=== PATIENT | male | born 1965 | race Caucasian/White ===

== ENCOUNTER 2024-08-30 06:45 | Day surgery (SDC) | payer OTHER ==
[2024-08-23 12:08] LABS: BASOPHILS % (AUTO) 0.5 % (0-1); EOSINOPHILS # (AUTO) 0.3 X10'3 (0-0.9); EOSINOPHILS % (AUTO) 3.8 % (0-6); LYMPHOCYTES % (AUTO) 24.9 % (21-51); MEAN CORPUSCULAR HEMOGLOBIN 27.6 PG (27.0-31.0); MEAN CORPUSCULAR HGB CONC 33.3 g/dL (33.0-36.5); MEAN CORPUSCULAR VOLUME 82.9 FL (78-98); MEAN PLATELET VOLUME 7.4 FL (7.4-10.4); MONOCYTES # (AUTO) 0.6 X10'3 (0-0.9); MONOCYTES % (AUTO) 7.9 % (2-12); NEUTROPHILS # (AUTO) 5.1 X10'3 (1.8-7.7); NEUTROPHILS % (AUTO) 62.9 % (42-75); PRE OP HEMATOCRIT 39.5 % (42.0-52.0); PRE OP HEMOGLOBIN 13.2 g/dL (14.0-17.9); PRE OP PLATELET COUNT 276 X10'3 (140-440); PRE OP WHITE BLOOD COUNT 8.1 10'3 (4.8-10.8); RED BLOOD COUNT 4.77 X10'6 (4.70-6.10); RED CELL DISTRIBUTION WIDTH 15.6 % (11.5-14.5)
[2024-08-23 12:22] LABS: PRE OP PROTIME 10.5 SECONDS (9.0-12.0)
[2024-08-23 12:24] LABS: ALBUMIN 4.2 G/DL (3.4-5.0); ALBUMIN/GLOBULIN RATIO 1.1 (1.1-1.5); ALKALINE PHOSPHATASE 92 IU/L (46-116); BLOOD UREA NITROGEN 11 MG/DL (7-18); BUN/CREATININE RATIO 11.3 (10.0-20.0); CALCIUM 9.2 MG/DL (8.5-10.1); CHLORIDE 104 MMOL/L (99-107); CREATININE 0.97 MG/DL (0.60-1.10); PRE OP ALT 60 U/L (30-65); PRE OP ANION GAP 9 (8-16); PRE OP AST 40 U/L (10-37); PRE OP BILIRUB, TOTAL 0.5 MG/DL (0.0-1.0); PRE OP GLUCOSE 97 MG/DL (70-104); PRE OP POTASSIUM 3.7 MMOL/L (3.4-5.1); PRE OP SODIUM 138 MMOL/L (135-145); TOTAL CARBON DIOXIDE 25.3 MMOL/L (24-32); eGFR 80 ML/MIN
[2024-08-23 12:29] LABS: BILIRUBIN,URINE NEGATIVE (Neg); CLARITY,URINE CLEAR (Clear); COLOR,URINE YELLOW (Yellow); GLUCOSE, URINE NEGATIVE (Neg); KETONES,URINE NEGATIVE (Neg); LEUKOCYTE ESTERASE ,URINE NEGATIVE (Neg); NITRITES, URINE NEGATIVE (Neg); OCCULT BLOOD,URINE NEGATIVE (Neg); PROTEIN,URINE NEGATIVE (Neg); UROBILINOGEN,URINE 0.2 E.U/dL (0.2-1.0)
[2024-08-23 12:36] LABS: UA COLLECTION TYPE CLN CATCH MIDSTREAM
[2024-08-30] VITALS (11 sets, daily range): BP systolic 120–144; BP diastolic 71–93; PULSE 72–94; RESP 12–16; TEMP 97.8; O2SAT 74–98
[~2024-08-30] VITALS: Ht 175.3 cm; Wt 111.7 kg
[2024-08-30] MEDS: ceFAZolin 2gm in dextrose, iso 50 ML IV ONE (05:30)
[~2024-08-30 06:45] MED LIST: ACET-3068 PO; ATOR20TA66 PO; FENO145T26 PO; GLIM4TAB7 PO; INSU100I31 SUBCUT; METF-436 PO; OMEP20CA16 PO; SPIR25TA5 PO
[2024-08-30] MEDS ORDERED: BUPIVAcaine 0.5% inj/PF 0 ML ONE (06:51)
[2024-08-30] MEDS ORDERED: LIDOcaine 1% W/epiNEPHrine 1:100,000 20ml vial ONE (06:52)
[2024-08-30] MEDS ORDERED: bacitracin 15gm ointment TP ONE (06:52)
[2024-08-30] MEDS: famotidine 20mg tablet PO ONE (07:09)
[2024-08-30] MEDS: ringers solution, lacted 1,000 ML IV SCH (07:10)
[2024-08-30] MEDS ORDERED: sevoflurane 250ml liquid IH ONE (09:00)
[2024-08-30] MEDS ORDERED: BUPIVACAINE liposomal/PF 13.3 MG/ML 10mL vial IM ONE (09:01)
[2024-08-30] MEDS ORDERED: BUPIVAcaine 0.5% inj/PF 60 ML ONE (09:01)
[2024-08-30] MEDS ORDERED: fentaNYL/PF 50MCG/1 ML 2ML syringe ONE (09:03)
[2024-08-30] MEDS ORDERED: midazolam 1 mg/ML 2ml injection ONE (09:04)
[2024-08-30] MEDS ORDERED: ondansetron/PF 4mg/2ml inj ONE (09:31)
[2024-08-30] MEDS ORDERED: dexamethasone sod phosphate 4mg/ml inj. ONE (09:31)
[2024-08-30] MEDS ORDERED: propofol inj 20 ML IV ONE (09:31)
[2024-08-30] MEDS ORDERED: vancomycin 1,000mg inj ONE (09:48)
[2024-08-30] MEDS ORDERED: ondansetron/PF 4mg/2ml inj IV PRN (10:05)
[2024-08-30] MEDS ORDERED: labetalol 20mg/4ml (5mg/ml) syringe IV PRN (10:05)
[2024-08-30] MEDS ORDERED: hydrALAZINE 20mg/ml inj. IV PRN (10:05)
[2024-08-30] MEDS ORDERED: fentaNYL/PF 50MCG/1 ML 2ML syringe IV PRN (10:05)
[2024-08-30] MEDS ORDERED: ringers solution, lacted 1,000 ML IV SCH (10:05)
[2024-08-30] MEDS: morphine 4 MG/ML inj SYRINge IV PRN (11:24)
[2024-08-30] MEDS: morphine 2 MG/ML inj. syringe IV PRN (11:34)
[2024-08-30] MEDS: fentaNYL/PF 50MCG/1 ML 2ML syringe IV PRN (11:56)
== END 2024-08-30 12:42 | disposition home or self-care (01) ==
LOC: PAS 06:45
PROVIDERS: ATTEND Podiatrist Foot & Ankle Surgery
DX: M21.6X2 Other acquired deformities of left foot (principal); M24.572 Contracture, left ankle; I12.9 Hypertensive chronic kidney disease with stage 1 through stage 4 chronic kidney disease, or unspecified chronic kidney disease; E11.22 Type 2 diabetes mellitus with diabetic chronic kidney disease; E78.5 Hyperlipidemia, unspecified; K21.9 Gastro-esophageal reflux disease without esophagitis; N18.9 Chronic kidney disease, unspecified; Z79.899 Other long term (current) drug therapy; Z79.01 Long term (current) use of anticoagulants; Z98.890 Other specified postprocedural states; G89.18 Other acute postprocedural pain
CPT/HCPCS: 27685; 27870; 36415; 64445; 64447; 71046; 73600; 80053; 81003; 82948; 85025; 85610; 85730; 93005; A6222; C1713; J0131; J0666; J0690; J1100; J2003; J2250; J2270; J2405; J2704; J3010; J3370; J7030; J7120; Z7506; Z7508; Z7512; 76000; A4215; A4615; A4618; A6253; A6449; A6455; A7000; J3490